=== PATIENT | male | born 1950 | race Two or more races ===

== ENCOUNTER 2021-01-30 10:55 | Emergency (ER) | payer MEDICARE, BC ==
[2021-01-30] MEDS ORDERED: diphenhydrAMINE 50 MG/ML SDV IVPUSH PRN (11:33)
[2021-01-30] MEDS ORDERED: EPINEPHrine 1 MG/ML SDV IM PRN (11:33)
[2021-01-30] MEDS ORDERED: Famotidine 20 MG/2 ML SDV IVPUSH PRN (11:33)
[2021-01-30] MEDS ORDERED: methylPREDNISolone Sodium Succinate 125 MG/2 ML SDV IVPUSH PRN (11:33)
--- NOTE | 2021-01-30 11:35 | EDM.PDOC ---
ED HPI GENERAL MEDICAL PROBLEM - General Chief Complaint: Respiratory Problem Stated Complaint: COVID + MEDS ARE NOT HELPING Time Seen by Provider: 01/30/21 11:16 Source of Information: Reports: Patient History Limitations: Reports: No Limitations - History of Present Illness INITIAL COMMENTS - FREE TEXT/NARRATIVE: 72-year-old male presents to the ED for evaluation of COVID-19 illness. He developed symptoms with headache fever chills and body aches on January 23. This would make him day 8 of illness. He states he has retention of his sense of taste and smell. Minimal nasal congestion no sore throat. Remains mildly nauseated and has poor appetite for solids. He has been taking adequate fluids. No diarrhea. Harsh paroxysmal cough not producing any sputum. C ontinues to run a fever of 101.4. States states Tylenol is no longer working. His O2 sats are 95 to 96% on room air. His sister came into the ED with her COVID-19 illness and received monoclonal antibodies with marked improvement. He is hoping to be able to be a candidate for this. Onset: Sudden Onset Date: 01/23/21 Duration: Day(s): (Patient has been ill for about 8 days.), Constant, Getting Worse (Unable to control fever.) Location: Reports: Head (Take), Chest (Paroxysmal intermittent cough not generating or expectorating much sputum.), Generalized (Neurolyse myalgia with decreased appetite) Quality: Reports: Ache, Throbbing Severity: Moderate Improves with: Reports: Medication (Tylenol was helping with fever it is no longer seems to be helping.) Worsens with: Reports: Movement Context: Reports: Sick Contact (Many members of his family including his sister). Denies: Activity, Exercise, Lifting Associated Symptoms: Reports: Cough, cough w sputum, Diaphoresis, Fever/Chills, Loss of Appetite (Minimal white sputum production), Malaise, Nausea/Vomiting, Shortness of Breath, Weakness, Other (No diarrhea). Denies: No Other Symptoms (Distant fever for 8 days), Confusion, Chest Pain, Rash (Remittent nausea without vomiting), Seizure, Syncope Treatments FLOOR RUNNER: Reports: Acetaminophen Headache Pain Score (Numeric/FACES): 4 Generalized Pain Score (Numeric/FACES): 6 - Related Data Allergies Allergy/AdvReac Type Severity Reaction Status Date / Time No Known Allergies Allergy Verified 01/30/21 11:18 Home Meds: Home Meds . [No Known Home Meds] 01/30/21 [History] Past Medical History Musculoskeletal History: Reports: Back Pain, Chronic, Neck Pain, Chronic - Infectious Disease History Infectious Disease History: Reports: Novel Coronavirus - Past Surgical History GI Surgical History: Reports: Cholecystectomy Social & Family History - Caffeine Use Caffeine Use: Reports: Tea - Recreational Drug Use Recreational Drug Use: No - Living Situation & Occupation Occupation: Retired ED ROS GENERAL - Review of Systems Review Of Systems: See Below Constitutional: Reports: Fever, Malaise, Weakness, Fatigue, Decreased Appetite, Weight Loss. Denies: Chills HEENT: Reports: Glasses. Denies: Throat Pain Respiratory: Reports: Shortness of Breath, Cough. Denies: Wheezing, Pleuritic Chest Pain, Sputum, Hemoptysis, Other Cardiovascular: Reports: Blood Pressure Problem, Dyspnea on Exertion, Lightheadedness. Denies: Chest Pain, Claudication, Edema, Orthopnea Endocrine: Reports: Fatigue GI/Abdominal: Reports: Nausea. Denies: Constipation, Diarrhea, Vomiting : Reports: No Symptoms, Frequency, Other (Decreased urinary stream. Nocturia x2-3. Known BPH.) Musculoskeletal: Reports: Neck Pain, Shoulder Pain, Back Pain, Joint Pain Skin: Reports: No Symptoms (Knees and hips at times) Neurological: Reports: Headache, Difficulty Walking (Due to weakness.), Weakness. Denies: Confusion, Dizziness, Numbness, Syncope, Tingling Psychiatric: Reports: No Symptoms Hematologic/Lymphatic: Reports: No Symptoms Immunologic: Reports: No Symptoms ED EXAM, GENERAL - Physical Exam Exam: See Below Exam Limited By: No Limitations General Appearance: Alert, WD/WN, No Apparent Distress, Other (Patient does feel very warm to palpation. Recorded temperature is 38.3 degrees. Heart rate 83 and sinus respiratory is 20 with O2 sats of 95 to 96% room air. BP is 173/81.) Eye Exam: Bilateral Eye: Normal Inspection (No blepharal pallor or scleral icterus.), PERRL Ears: Normal TMs Throat/Mouth: Normal Inspection, Normal Lips, Normal Teeth, Normal Oropharynx Head: Atraumatic, Normocephalic Neck: Normal Inspection, Supple, Non-Tender, Full Range of Motion. No: Carotid Bruit, Lymphadenopathy (L), Lymphadenopathy (R) Respiratory/Chest: No Accessory Muscle Use, Respiratory Distress (Mild tachypnea at rest.), Rhonchi (Rhonchi left upper lung field). No: Lungs Clear, Normal Breath Sounds, Decreased Breath Sounds Cardiovascular: Normal Peripheral Pulses, Regular Rate, Rhythm, No Edema, No Gallop, No Murmur, No Rub Peripheral Pulses: 2+: Carotid (L), Carotid (R), Posterior Tibial (L), Posterior Tibial (R), Dorsalis Pedis (L), Dorsalis Pedis (R) GI/Abdominal: Normal Bowel Sounds, Soft, Non-Tender, No Organomegaly, No Abnormal Bruit, No Mass, Pelvis Stable, Distended (Mildly distended tympany to percussion combined with mild aerophagia. Surgical scars related to laparoscopic cholecystectomy) Back Exam: Normal Inspection, Full Range of Motion. 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) ST-T: Normal QT: Normal Course - Vital Signs Last Recorded V/S: Last Vital Signs Temp 37.7 C 01/30/21 13:35 Pulse 83 01/30/21 11:17 Resp 20 01/30/21 11:17 BP 173/81 H 01/30/21 11:17 Pulse Ox 95 01/30/21 11:17 - Orders/Labs/Meds Orders: Active Orders 24 hr Category Date Time Status Vital Signs [RC] Q15M Care 01/30/21 11:33 Active PRO B-TYPE NATRIUR PEPT,BNPPRO [CHEM] Stat Lab 01/30/21 12:29 Received Dextrose 5%-0.9% NaCl [Dextrose 5%-Normal Saline] 1,000 Med 01/30/21 11:45 Active ml IV ASDIRECTED EPINEPHrine [Adrenalin] Med 01/30/21 11:33 Active 0.3 mg IM ONETIME PRN Famotidine [Pepcid] Med 01/30/21 11:33 Active 20 mg IVPUSH ONETIME PRN Sodium Chloride 0.9% [Saline Flush] Med 01/30/21 11:45 Active 30 ml FLUSH ASDIRECTED diphenhydrAMINE [Benadryl] Med 01/30/21 11:33 Active 50 mg IVPUSH ONETIME PRN methylPREDNISolone Sod Succ [Solu-MEDROL] Med 01/30/21 11:33 Active 125 mg IVPUSH ONETIME PRN Medication Orders Diphenhydramine HCl (Diphenhydramine 50 Mg/Ml Sdv) 50 mg IVPUSH ONETIME PRN PRN Reason: hypersensitivity reaction Epinephrine HCl (Epinephrine 1 Mg/Ml Sdv) 0.3 mg IM ONETIME PRN PRN Reason: hypersensitivity reaction Famotidine (Famotidine 20 Mg/2 Ml Sdv) 20 mg IVPUSH ONETIME PRN PRN Reason: hypersensitivity reaction Dextrose/Sodium Chloride (Dextrose 5%-Normal Saline) 1,000 mls @ 125 mls/hr IV ASDIRECTED [facility] Methylprednisolone Sodium Succinate (Methylprednisolone Sodium Succinate 125 Mg/2 Ml Sdv) 125 mg IVPUSH ONETIME PRN PRN Reason: hypersensitivity reaction Sodium Chloride (Sodium Chloride 0.9% 10 Ml Syringe) 30 ml FLUSH ASDIRECTED [facility] Labs: Laboratory Tests 01/30/21 01/30/21 Range/Units 12:29 12:29 WBC 3.51 L (4.23-9.07) K/mm3 RBC 4.51 L (4.63-6.08) M/mm3 Hgb 12.8 L (13.7-17.5) gm/dl Hct 38.5 L (40.1-51.0) % MCV 85.4 (79.0-92.2) fl MCH 28.4 (25.7-32.2) pg MCHC 33.2 (32.2-35.5) g/dl RDW Std Deviation 42.4 (35.1-43.9) fL Plt Count 113 L (163-337) K/mm3 MPV 10.2 (9.4-12.3) fl Neut % (Auto) 82.6 H (34.0-67.9) % Lymph % (Auto) 12.3 L (21.8-53.1) % Mora % (Auto) 5.1 L (5.3-12.2) % Eos % (Auto) 0 L (0.8-7.0) Baso % (Auto) 0.0 L (0.1-1.2) % Neut # (Auto) 2.90 (1.78-5.38) K/mm3 Lymph # (Auto) 0.43 L (1.32-3.57) K/mm3 Mora # (Auto) 0.18 L (0.30-0.82) K/mm3 Eos # (Auto) 0.00 L (0.04-0.54) K/mm3 Baso # (Auto) 0.00 L (0.01-0.08) K/mm3 Sodium 140 (136-145) mEq/L Potassium 3.0 L (3.5-5.1) mEq/L Chloride 103 (98-107) mEq/L Carbon Dioxide 27 (21-32) mEq/L Anion Gap 13.0 (5-15) BUN 9 (7-18) mg/dL Creatinine 1.0 (0.7-1.3) mg/dL Est Cr Clr Drug Dosing 73.29 mL/min Estimated GFR (MDRD) > 60 (>60) mL/min BUN/Creatinine Ratio 9.0 L (14-18) Glucose 113 H (70-99) mg/dL Calcium 8.0 L (8.5-10.1) mg/dL Magnesium 1.8 (1.8-2.4) mg/dL Total Bilirubin 0.8 (0.2-1.0) mg/dL AST 33 (15-37) U/L ALT 27 (16-63) U/L Alkaline Phosphatase 102 (46-116) U/L Lactate Dehydrogenase 258 H (85-227) U/L Troponin I < 0.017 (0.00-0.056) ng/mL C-Reactive Protein 13.6 H* (<1.0) mg/dL Total Protein 6.9 (6.4-8.2) g/dl Albumin 3.0 L (3.4-5.0) g/dl Globulin 3.9 gm/dL Albumin/Globulin Ratio 0.8 L (1-2) Meds: Medications Generic Name Dose Route Start Last Admin Trade Name Jonesq PRN Reason Stop Dose Admin Diphenhydramine HCl 50 mg 01/30/21 11:33 Diphenhydramine 50 Mg/Ml Sdv IVPUSH ONETIME PRN hypersensitivity reaction Epinephrine HCl 0.3 mg 01/30/21 11:33 Epinephrine 1 Mg/Ml Sdv IM ONETIME PRN hypersensitivity reaction Famotidine 20 mg 01/30/21 11:33 Famotidine 20 Mg/2 Ml Sdv IVPUSH ONETIME PRN hypersensitivity reaction Dextrose/Sodium Chloride 1,000 mls @ 125 mls/hr 01/30/21 11:45 Dextrose 5%-Normal Saline IV ASDIRECTED [facility] Methylprednisolone Sodium Succinate 125 mg 01/30/21 11:33 Methylprednisolone Sodium Succinate 125 Mg/2 Ml Sdv IVPUSH ONETIME PRN hypersensitivity reaction Sodium Chloride 30 ml 01/30/21 11:45 Sodium Chloride 0.9% 10 Ml Syringe FLUSH ASDIRECTED [facility] Discontinued Medications Generic Name Dose Route Start Last Admin Trade Name Jonesq PRN Reason Stop Dose Admin CASIRIVIMAB/IMDEVIMAB 10 ml/ 110 mls @ 220 mls/hr 01/30/21 11:33 01/30/21 12:31 Sodium Chloride IV 01/30/21 12:02 220 mls/hr ONETIME ONE Administration Ibuprofen 600 mg 01/30/21 11:59 01/30/21 12:35 Ibuprofen 600 Mg Tab PO 01/30/21 12:00 600 mg ONETIME ONE Administration - Radiology Interpretation Free Text/Narrative:: 72-year-old male presents to the ED with known positive COVID-19 illness diagnosed on January 25. Patient had symptoms dating back to January 23. Currently on day 8 of illness. He has minimal nasal congestion. Mild paroxysmal nonproductive cough generalized myalgia and persistent fever of 100 201 degrees. States the Tylenol stains make his stomach sick and does not seem to bring bring his fever down. He has a headache associated with the fever and generalized myalgia. On exam his left lung has a few rhonchi upper lobe. Plan he will have a chest x-ray done with routine labs. IV will be D5 normal saline at 125 mils per hour. Given Motrin 600 mg p.o. for high fever. He wishes to go ahead with monoclonal antibody infusion. He was given the sheet to read about regen-Cov wishes to pursue treatment in this regard. I have spoke with the patient Salomón Calderonbigniew. And provided him a copy of the fax sheet for patients and parents and caregivers for Regen-Cov monoclonal antibody therapy. I stated that the therapy has been approved by an emergency use authorization process and does not fully been FDA reviewed or approved. Shared potential risk from the therapy including adverse reaction such as allergic response. I discussed that there are other potential treatment options that are currently not FDA approved to treat COVID-19. Offered opportunity to ask questions and all questions were answered. He wishes to pursue treatment for himself and agreed to receive Regen-Cov. - Re-Assessments/Exams Free Text/Narrative Re-Assessment/Exam: 01/30/21 12:08 chest x-ray done portably reveals the Heart size is normal. Slight tortuosity of the thoracic aorta is appreciated. There are scattered areas of increased parenchymal density within the right mid and lower lung. Mild increased density is seen within the left upper and left mid lung as well. Bony structures show nothing acute. 01/30/21 13:21 White count is back at and is 3.51 with the auto differential showing 82.6% neutrophils. Hemoglobin is 12.8 with hematocrit of 38.5 MCV is normal at 85.4 platelet count is low at 113,000 01/30/21 13:42 Chemistry reveals a sodium of 140 and a potassium low at 3.0. Chloride is 103 with a bicarb of 27. Anion gap is 13.0. BUN is 9 with a creatinine of 1.0 and a GFR greater than 60. Glucose is 113 calcium is low at 8.0 compared with not eating as well. Magnesium is 1.8. Liver function is normal LDH is elevated at 258 troponin I is less than 0.017 C-reactive protein is 13.6. Total protein is 6.9 with an albumin fraction of 3.0. Of note the patient has completed his monoclonal antibody therapy and feels fine. He will be monitored now for the next 45 minutes to an hour. 01/30/21 14:19 and has been monitored for 1 hour post monoclonal antibody infusion and has no reaction. He feels fine. He will be discharged to home with a pulse oximeter to monitor his oxygen levels at home. Advised to return if O2 sats daily 88% or lower for more than 2 consecutive hours. Departure - Departure Time of Disposition: 14:18 Disposition: Home, Self-Care 01 Condition: Fair Clinical Impression: COVID-19 determined by clinical diagnostic criteria, Viral pneumonia - Discharge Information *PRESCRIPTION DRUG MONITORING PROGRAM REVIEWED*: Not Applicable *COPY OF PRESCRIPTION DRUG MONITORING REPORT IN PATIENT ASHTYN: Not Applicable Instructions: COVID-19, Things to Know about the COVID-19 Pandemic - [facility] (08/11/2020), COVID-19: How to Protect Yourself and Others - CDC, Frequently Asked Questions About COVID-19 Vaccination - [facility] (09/21/2020), COVID-19: Quarantine vs. Isolation - [facility] (05/13/2020) Referrals: PCP,Not In Area [Primary Care Provider] - Forms: ED Department Discharge Additional Instructions: Evaluation in the emergency room today in regards to COVID-19 illness which was diagnosed earlier this week on January 25. Symptoms started last Sunday indicating you are currently on day 8 of illness. Symptoms are usually worse between day 8 and 11. X-ray of your chest does reveal pneumonia on both sides of your lungs. Your oxygen levels are still satisfactory however. You are therefore a candidate for monoclonal antibody therapy and you did receive the Regen-Cov nomination of monoclonal antibodies intravenously. Goal is to give you immediate immunity to the COVID-19 virus and improve your symptoms and hopefully prevent you from getting worse and needed to be admitted to the hospital. Suggest using pulse oximeter to monitor your oxygen levels at home ideally 3 or 4 times daily. If you are oxygen levels are staying 88% or lower for longer than 2 hours this would indicate that you are getting worse and would need to come back to the emergency room. Suggest using Motrin 600 mg every 6 hours to relieve headache and body aches and fever. Plenty of fluids to maintain hydration. Diet as tolerated. Sepsis Event Note (ED) - Focused Exam Vital Signs: Vital Signs Temp Temp Pulse Resp BP Pulse Ox 01/30/21 13:35 37.7 C 01/30/21 12:35 38.2 C H 01/30/21 11:17 38.3 C H 83 20 173/81 H 95 - My Orders Last 24 Hours: My Active Orders 01/30/21 11:33 Vital Signs [RC] Q15M EPINEPHrine [Adrenalin] 0.3 mg IM ONETIME PRN Famotidine [Pepcid] 20 mg IVPUSH ONETIME PRN diphenhydrAMINE [Benadryl] 50 mg IVPUSH ONETIME PRN methylPREDNISolone Sod Succ [Solu-MEDROL] 125 mg IVPUSH ONETIME PRN 01/30/21 11:45 Dextrose 5%-0.9% NaCl [Dextrose 5%-Normal Saline] 1,000 ml IV ASDIRECTED Sodium Chloride 0.9% [Saline Flush] 30 ml FLUSH ASDIRECTED 01/30/21 12:29 PRO B-TYPE NATRIUR PEPT,BNPPRO [CHEM] Stat - Assessment/Plan Last 24 Hours: My Active Orders 01/30/21 11:33 Vital Signs [RC] Q15M EPINEPHrine [Adrenalin] 0.3 mg IM ONETIME PRN Famotidine [Pepcid] 20 mg IVPUSH ONETIME PRN diphenhydrAMINE [Benadryl] 50 mg IVPUSH ONETIME PRN methylPREDNISolone Sod Succ [Solu-MEDROL] 125 mg IVPUSH ONETIME PRN 01/30/21 11:45 Dextrose 5%-0.9% NaCl [Dextrose 5%-Normal Saline] 1,000 ml IV ASDIRECTED Sodium Chloride 0.9% [Saline Flush] 30 ml FLUSH ASDIRECTED 01/30/21 12:29 PRO B-TYPE NATRIUR PEPT,BNPPRO [CHEM] Stat
[2021-01-30] MEDS ORDERED: Dextrose 5%-0.9% NaCl 1,000 ML IV SCH (11:45)
[2021-01-30] MEDS ORDERED: Sodium Chloride 0.9% 10 ML Syringe FLUSH SCH (11:45)
[2021-01-30] MEDS ORDERED: Ibuprofen 600 MG Tab PO ONE (11:59)
--- NOTE | 2021-01-30 12:31 | CR ---
Chest: Frontal view of the chest was obtained. Comparison: No prior chest imaging is available. Heart size is normal. Slight tortuosity of the thoracic aorta is seen. Scattered areas of increased parenchymal density are seen within the right mid and lower lung. Mild increased density is seen within the left upper and left mid lung. Bony structures show nothing acute. Surgical clips are noted from prior cholecystectomy. Impression: 1. Moderate areas of density on both sides of the chest most likely representing COVID pneumonia. 2. Other findings believed to be incidental. Diagnostic code #3
== END 2021-01-30 14:30 | disposition home or self-care (01) ==
LOC: EDBD 10:55 → JD.ED 10:55
DX: U07.1 COVID-19 (principal); J12.82 Pneumonia due to coronavirus disease 2019; R06.02 Shortness of breath; R53.81 Other malaise
CPT/HCPCS: 36415; 71045; 80053; 83615; 83735; 83880; 84484; 85025; 86140; 93005; 99284; A9270; M0243; Q0243; 93010